=== PATIENT | male | born 1940 | race African-American/Black ===

== ENCOUNTER → 2017-08-12 | Day surgery (SDC) | payer MEDICARE ==
[2017-08-06 13:05] LABS: BASOPHILS % 0.8 % (0.0-1.0); EOSINOPHILS % 0.4 % (0.0-6.0); HEMATOCRIT 45.9 % (38.2-49.6); HEMOGLOBIN 14.9 g/dL (14.0-18.0); LYMPHOCYTES # (AUTO) 1.6 (1.0-3.2); LYMPHOCYTES % 31.8 % (18.0-39.1); MEAN CORPUSCULAR HEMOGLOBIN 28.2 pg (28-32); MEAN CORPUSCULAR HGB CONC 32.5 g/dL (31-35); MEAN CORPUSCULAR VOLUME 86.8 fL (81-99); MONOCYTES # (AUTO) 0.6 (0.2-0.8); MONOCYTES % 11.2 % (4.4-11.3); NEUTROPHILS # (AUTO) 2.8 (2.1-6.9); NEUTROPHILS % 55.6 % (38.7-80.0); PLATELET COUNT 144 x10e3/uL (140-360); RED BLOOD COUNT 5.29 x10e6/uL (4.3-5.7)
[~2017-08-12] MED LIST: ARICEPT5 MG PO; LIDOCAINE HCL 2% LOCAL INJ 5 ML SDV VIAL INJ ONE; LOVASTATIN10 MG PO; MIDODRINE HCL2.5 MG PO; PRADAXA75 MG PO; PROPOFOL IV EMULSION 10 MG/ML 50 ML VIAL ONE
--- OUTSIDE RECORDS SUMMARY | 2017-08-12 11:15 | XMS REPORT | Clinical Summary ---
Author Author [facility] Organization [facility] Address Unknown Phone Unavailable Care Team Providers Care Weight And Balance Control Agent Name Role Phone Neda Vega MD PCP Allergies Active Allergy Reactions Severity Noted Date Comments No Known Drug Allergies Current Medications Prescription Sig. Disp. Refills Start End Date Status Date donepezil (ARICEPT) 10 MG TK 1 T PO D 1 08/11/19 Active tablet 17 lovastatin (MEVACOR) 10 TK 1 T PO D 30 tablet 2 05/19/20 Active MG tablet 17 dabigatran etexilate Take 1 capsule (75 mg 60 capsule 3 07/31/19 Active (PRADAXA) 75 mg capsule total) by mouth 2 (two) 18 times a day. midodrine (PROAMATINE) 5 Take 1 tablet (5 mg 180 tablet 2 08/08/19 09/07/19 Active MG tablet total) by mouth 3 (three) 18 18 times a day for 30 days. meclizine (ANTIVERT) 25 Take 25 mg by mouth 3 08/08/19 Discontin mg tablet (three) times a day as 18 ued needed for dizziness. dabigatran etexilate Take 75 mg by mouth 2 11/07/19 Discontin (PRADAXA) 75 mg capsule (two) times a day. 17 ued dabigatran etexilate Take 1 capsule (75 mg 60 capsule 2 11/07/1908/26 Discontin (PRADAXA) 75 mg capsule total) by mouth 2 (two) 17 17 ued times a day. midodrine (PROAMATINE) Take 1 tablet (2.5 mg 90 tablet 0 12/17/19 Discontin 2.5 MG tablet total) by mouth 3 (three) 17 17 ued times a day for 30 days. PRADAXA 75 mg capsule TAKE 1 CAPSULE(75 MG) BY 60 capsule 3 01/10/20 07/31/19 Discontin MOUTH TWICE DAILY 17 18 ued midodrine (PROAMATINE) TAKE 1 TABLET(2.5 MG) BY 90 tablet 0 02/29/20 05/06/20 Discontin 2.5 MG tablet MOUTH THREE TIMES DAILY 17 17 ued midodrine (PROAMATINE) TAKE 1 TABLET(2.5 MG) BY 90 tablet 3 05/06/20 08/08/19 Discontin 2.5 MG tablet MOUTH THREE TIMES DAILY 17 18 ued lovastatin (MEVACOR) 10 TK 1 T PO D 2 02/26/20 05/19/20 Discontin MG tablet 17 17 ued Active Problems Problem Noted Date Paroxysmal atrial fibrillation 05/19/2017 Dizziness 09/23/2016 VT (ventricular tachycardia) 09/23/2016 ICD (implantable cardioverter-defibrillator) in place 09/23/2016 Cardiomyopathy 09/23/2016 Orthostatic hypotension 09/23/2016 Essential hypertension 09/23/2016 Unspecified atrial fibrillation Encounters Date Type Specialty Care Team Description 08/07/2017 Office Visit Cardiology Jojo Mar Orthostatic hypotension (Primary Dx); Dizziness; Dilated cardiomyopathy; ICD (implantable cardioverter-defibrillato r) in place; VT (ventricular tachycardia); Essential hypertension; Paroxysmal atrial fibrillation 07/31/2017 Refill Cardiology Lorelei Solis MA Med Refill 06/13/2017 Orders Only Jojo Hernandez MD 05/19/2017 Office Visit Cardiology [facility] Orthostatic hypotension (Primary Dx); Dizziness; Dilated cardiomyopathy; ICD (implantable cardioverter-defibrillato r) in place; VT (ventricular tachycardia); Essential hypertension; Paroxysmal atrial fibrillation 05/19/2017 Refill Cardiology Lorelei Solis MA Med Refill 05/06/2017 Refill Cardiology Jojo Mar Med Refill 03/06/2017 Orders Only Jojo Hernandez MD 02/28/2017 Refill Cardiology Jojo Mar Med Refill 02/14/2017 Office Visit Cardiology Jojo Mar Orthostatic hypotension (Primary Dx); Dizziness; Cardiomyopathy; ICD (implantable cardioverter-defibrillato r) in place; VT (ventricular tachycardia); Essential hypertension; Unspecified atrial fibrillation 01/23/2017 Telephone Cardiology Michelle Robertson MA Establishing care 01/09/2017 Refill Cardiology Jojo Mar Med Refill 12/18/2016 Orders Only Cardiology Jojo Mar MD 12/16/2016 Office Visit Cardiology Jojo Mar Orthostatic hypotension (Primary Dx); Dizziness; Cardiomyopathy; ICD (implantable cardioverter-defibrillato r) in place; VT (ventricular tachycardia); Essential hypertension; Unspecified atrial fibrillation 11/14/2016 Orders Only Cardiology Jojo Mar MD 11/06/2016 Refill Cardiology Lorelei Solis MA Med Refill 10/14/2016 Office Visit Cardiology Jojo Mar Orthostatic hypotension (Primary Dx); Dizziness; Cardiomyopathy; ICD (implantable cardioverter-defibrillato r) in place; Essential hypertension; VT (ventricular tachycardia); Unspecified atrial fibrillation 10/08/2016 Orders Only Cardiology Jojo Mar MD 09/25/2016 Orders Only Cardiology Jojo Mar MD 09/23/2016 Office Visit Cardiology Jojo Mar Unspecified atrial MD fibrillation (Primary Dx); Dizziness; VT (ventricular tachycardia); ICD (implantable cardioverter-defibrillato r) in place; Orthostatic hypotension; Essential hypertension; Cardiomyopathy 09/19/2016 Abstract Cardiology Roxanne Kennedy MA after 08/11/2016 Social History Tobacco Use Types Packs/Day Years Used Date Former Smoker Smokeless Tobacco: Never Used Alcohol Use Drinks/Week oz/Week Comments No Sex Assigned at Date Recorded Not on file Last Filed Vital Signs Vital Sign Reading Time Taken Blood Pressure 128/70 08/07/2017 2:42 PM [employer] Pulse 84 08/07/2017 2:42 PM [employer] Temperature 36.8 C (98.3 F) 05/19/2017 11:03 AM [employer] Respiratory Rate - - Oxygen Saturation 97% 08/07/2017 2:42 PM [employer] Inhaled Oxygen - - Concentration Weight 89.2 kg (196 lb 9.6 oz) 08/07/2017 2:42 PM [employer] Height 177.8 cm (5' 10") 08/07/2017 2:42 PM [employer] Body Mass Index 28.21 08/07/2017 2:42 PM [employer] Plan of Treatment Date Type Specialty Care Team Description 11/17/2017 Office Visit Cardiology Jojo Mar MD [address] [address] [phone] Health Maintenance Due Date Last Done Comments ZOSTER VACCINE 1999 PNEUMOCOCCAL 2004 POLYSACCHARIDE VACCINE AGE 65 AND OVER PNEUMOCOCCAL-13 2004 INFLUENZA VACCINE 01/07/2017 Procedures Procedure Name Priority Date/Time Associated Diagnosis Comments CV PACEMAKER DEFIB ILR Routine 05/19/2017 INTERROGATION 12:00 AM [employer] CV PACEMAKER DEFIB ILR Routine 02/12/2017 INTERROGATION 12:00 AM CDT CV PACEMAKER DEFIB ILR Routine 10/11/2016 INTERROGATION 12:00 AM CDT CV PACEMAKER DEFIB ILR Routine 10/09/2016 INTERROGATION 12:00 AM CDT CV PACEMAKER DEFIB ILR Routine 09/25/2016 INTERROGATION 12:00 AM CDT CV PACEMAKER DEFIB ILR Routine 09/13/2016 INTERROGATION 12:00 AM CDT after 08/11/2016 Results * CV pacemaker defib or ilr interrogation (05/19/2017) * CV pacemaker defib or ilr interrogation (02/12/2017) * CV pacemaker defib or ilr interrogation (10/11/2016) * CV pacemaker defib or ilr interrogation (10/09/2016) * CV pacemaker defib or ilr interrogation (09/25/2016) * CV pacemaker defib or ilr interrogation (09/13/2016) after 08/11/2016 Insurance Payer Benefit Subscriber ID Type Phone Address Plan / Group AETNA MEDICARE AETNA xxxxxxxx HMO MEDICARE HMO/PPO [facility]
== END | disposition home or self-care (01) ==
LOC: OR 11:13
PROVIDERS: ATTEND Internal Medicine Gastroenterology
DX: Z12.11 Encounter for screening for malignant neoplasm of colon (principal); K52.9 Noninfective gastroenteritis and colitis, unspecified; K57.30 Diverticulosis of large intestine without perforation or abscess without bleeding; K59.09 Other constipation; K64.8 Other hemorrhoids; I48.91 Unspecified atrial fibrillation; R03.0 Elevated blood-pressure reading, without diagnosis of hypertension; E78.5 Hyperlipidemia, unspecified; Z01.810 Encounter for preprocedural cardiovascular examination; Z01.812 Encounter for preprocedural laboratory examination; Z79.02 Long term (current) use of antithrombotics/antiplatelets; Z79.01 Long term (current) use of anticoagulants; Z95.810 Presence of automatic (implantable) cardiac defibrillator; Z96.60 Presence of unspecified orthopedic joint implant
CPT/HCPCS: 36415; 45380; 85025; 88305; 93005; J2001